=== PATIENT | male | born 1950 | race Caucasian/White ===

== ENCOUNTER 2018-04-18 11:51 | Inpatient (IN) | payer MEDICARE, OTHER ==
[2018-04-18 12:29] LABS: % BASOPHILS 0.4 % (0.0-2.0); % EOSINOPHILS 0.4 % (0.0-5.0); % LYMPHOCYTES 20.3 % (20.0-50.0); % MONOCYTES 4.9 % (2.0-10.0); HEMATOCRIT 40.5 % (41.0-60); HEMOGLOBIN 13.9 gm/dL (12-16); MEAN CELL VOLUME 90.2 fl (80-99); MEAN CORPUSCULAR HEMOGLOBIN 30.9 pg (27.0-31.0); MEAN CORPUSCULAR HGB CONC 34.2 pg (28.0-36.0); MEAN PLATELET VOLUME 8.9 fl; MONOCYTE ABSOLUTE 0.2 Th/cmm (0.3-1.0); NEUTROPHILE ABSOLUTE 3.5 Th/cmm (1.8-8.0); PLATELET COUNT 171 Th/cmm (150-400); RED BLOOD COUNT 4.49 Mil/cmm (3.80-5.80); RED CELL DISTRIBUTION WIDTH 12.4 % (11.5-20.0); WHITE BLOOD COUNT 4.7 Th/cmm (4.8-10.8)
[2018-04-18 12:46] LABS: ALB/GLOB RATIO 1.8 (1.0-1.8); ALBUMIN 4.2 gm/dL (4.2-5.5); ALKALINE PHOSPHATASE 65 U/L (34-104); ANION GAP 14.2 (7.0-16.0); BILIRUBIN,TOTAL 0.8 mg/dL (0.3-1.0); BUN - UREA NITROGEN 18 mg/dL (7-25); CALCIUM SERUM 9.3 mg/dL (8.6-10.3); CARBON DIOXIDE 22.9 mEq/L (21.0-31.0); CHLORIDE 103 mEq/L (98-107); CREATININE - SERUM 0.7 mg/dL (0.7-1.3); GFR AFRICAN-AMERICAN > 60.0 ml/min (>90); GFR NON AFRICAN-AMERICAN > 60.0 ml/min; GLUCOSE 362 mg/dL (70-105); PHOSPHOROUS 3.1 mg/dL (2.5-5.0); POTASSIUM SERUM 4.1 mEq/L (3.5-5.1); SGOT 15 U/L (13-39); SGPT/ALT 21 U/L (7-52); SODIUM SERUM 136 mEq/L (136-145); TOTAL PROTEIN,SERUM 6.5 gm/dL (6.0-8.3)
[2018-04-18 13:14] LABS: ACETAMINOPHEN < 10.0 ug/mL (10.0-30.0); SALICYLATES (ASPIRIN) < 25.0 mg/L (30.0-100.0)
[2018-04-18 13:39] LABS: URINE SOURCE CLEAN C
[2018-04-18 14:16] LABS: AMPHETAMINE URINE NEGATIVE (NEGATIVE); BARBITURATES URINE NEGATIVE (NEGATIVE); BENZODIAZEPINES QUAL URINE NEGATIVE (NEGATIVE); CANNABINOID THC NEGATIVE (NEGATIVE); COCAINE METABOLITE QUAL URINE NEGATIVE (NEGATIVE); METHADONE URINE NEGATIVE (NEGATIVE); METHAMPHETAMINES QUAL URINE NEGATIVE (NEGATIVE); OPIATES (MORPHINE) QUAL. URINE NEGATIVE (NEGATIVE); PHENCYCLIDINE (PCP) URINE NEGATIVE (NEGATIVE); TRICYCLICS (TCA) QUAL. URINE NEGATIVE (NEGATIVE)
[2018-04-18 14:21] LABS: URINE COLOR YELLOW
[2018-04-18 14:22] LABS: URINE CLARITY HAZY (CLEAR); URINE MICROSCOPIC INDICATED? YES
[2018-04-18 14:23] LABS: URINE BILIRUBIN NEGATIVE (NEGATIVE); URINE BLOOD NEGATIVE (NEGATIVE); URINE GLUCOSE (UA) >=1000 mg/dL (NEGATIVE); URINE KETONE TRACE mg/dL (NEGATIVE); URINE NITRATE POSITIVE (NEGATIVE); URINE PH 6.5 (4.6 - 8.0); URINE PROTEIN NEGATIVE (NEGATIVE); URINE UROBILINOGEN 0.2 E.U./dL (0.2 - 1.0)
[2018-04-18 14:24] LABS: URINE BACTERIA 2+ /hpf (NONE SEEN); URINE EPITHELIAL CELLS RARE /lpf (FEW); URINE LEUKOCYTE ESTERASE NEGATIVE (NEGATIVE); URINE RBC 0-2 /hpf (0-5); URINE WBC 0-2 /hpf (0-5)
[2018-04-18 14:25] LABS: URINE SPERM MODERATE /hpf (NONE SEEN)
[2018-04-18] MEDS ORDERED: Lactated Ringer 1,000 ML IV ONE ×2 (14:31→16:00)
--- NOTE | 2018-04-18 14:39 | ED Physician Chart ---
ED Chief Complaint/HPI - Patient Information Date Seen:: 04/18/18 Time Seen:: 12:00 Chief Complaint:: failure to thrive History of Present Illness:: PATIENT PRESENTS TO THE ER WITH HX OF WEAKNESS, DIZZINESS, POOR ORAL INTAKE, AND FAILURE TO THRIVE FOR SEVERAL DAYS; NO TRAUMA, NO OTHER REMARKABLE S/S; CURRENTLY DENIES ANY SYMPTOMS; PATIENT IS TO BE PLACED IN SNF PER DR ROSS Allergies:: Allergies Allergy/AdvReac Type Severity Reaction Status Date / Time No Known Allergies Allergy Verified 04/18/18 12:00 Vitals:: Vital Signs - 8 hr 04/18/18 12:00 Temp 98.9 F HR 86 RR 17 BP 147/63 O2 Sat % 97 Historian:: Other Review:: Nurse's Note Reviewed ED Review of Systems - Review of Systems General/Constitutional: No fever, No chills, Weight loss, Weakness, Loss of appetite Skin: No skin lesions, No rash, No bruising Head: No headache, No light-headedness Eyes: No loss of vision, No pain, No diplopia ENT: No earache, No nasal drainage, No sore throat, No tinnitus Neck: No neck pain, No swelling, No thyromegaly, No stiffness, No mass noted Cardio Vascular: No chest pain, No palpitations, No PND, No orthopnea, No edema Pulmonary: No SOB, No cough, No sputum, No wheezing GI: No nausea, No vomiting, No diarrhea, No pain, No melena, No hematochezia, No constipation, No hematemesis G/U: No dysuria, No frequency, No hematuria Musculoskeletal: No bone or joint pain, No back pain, No muscle pain Endocrine: No polyuria, No polydipsia Psychiatric: No prior psych history, No depression, No anxiety, No suicidal ideation Hematopoietic: No bruising, No lymphadenopathy Allergic/Immuno: No urticaria, No angioedema Neurological: No syncope, No focal symptoms, No weakness, No paresthesia, No headache, No seizure, No dizziness, No confusion, No vertigo ED Past Medical History - Past Medical History Obtainable: Yes Past Medical History: HTN, DM Family Medical History - Family Member Mother History Unknown: Yes ED Physical Exam - Physical Examination General/Constitutional: Awake, Well-developed, well-nourished, Alert, No distress, Non-toxic appearing, Ambulatory Other Gen/Cons comments:: filthy throughout. thick layer of dirt present throughout. no shower or bath for weeks apparent. Head: Atraumatic Eyes: Lids, conjuctiva normal, PERRL, EOMI Skin: Nl inspection, No rash, No skin lesions, No ecchymosis, Well hydrated, No lymphadenopathy ENMT: External ears, nose nl Neck: Nontender, Full ROM w/o pain, No nuchal rigidity, No stridor Respiratory: Nl effort/Exclusion, Clear to Auscultation, No Wheeze/Rhonchi/Rales Cardio Vascular: RRR, No murmur, gallop, rubs, NL S1 S2 GI: No tenderness/rebounding/guarding, No organomegaly, No hernia, Normal BS's, Nondistended, No mass/bruits, No McBurney tenderness : No CVA tenderness Extremities: No tenderness or effusion, Full ROM, normal strength in all extremities, No edema, Normal digits & nails Neuro/Psych: Alert/oriented, Normal sensory exam, Normal motor strength, No focal deficits Misc: Normal back, No paraspinal tenderness ED Labs/Radiology/EKG Results - Lab Results Results: Laboratory Tests 04/18/18 04/18/18 04/18/18 12:15 12:15 12:15 WBC 4.7 L RBC 4.49 Hgb 13.9 Hct 40.5 L MCV 90.2 MCH 30.9 MCHC Differential 34.2 RDW 12.4 Plt Count 171 MPV 8.9 Neutrophils % 74.0 Lymphocytes % 20.3 Monocytes % 4.9 Eosinophils % 0.4 Basophils % 0.4 Sodium 136 Potassium 4.1 Chloride 103 Carbon Dioxide 22.9 Anion Gap 14.2 BUN 18 Creatinine 0.7 Est GFR ( Amer) > 60.0 Est GFR (Non-Af Amer) > 60.0 BUN/Creatinine Ratio 25.7 Glucose 362 H POC Glucose Calcium 9.3 Phosphorus 3.1 Magnesium 2.0 Total Bilirubin 0.8 AST 15 ALT 21 Alkaline Phosphatase 65 Troponin I Total Protein 6.5 Albumin 4.2 Globulin 2.3 Albumin/Globulin Ratio 1.8 TSH 0.85 Urine Source Urine Color Urine Clarity Urine pH Ur Specific [place] Urine Protein Urine Glucose (UA) Urine Ketones Urine Blood Urine Nitrate Urine Bilirubin Urine Urobilinogen Ur Leukocyte Esterase Urine RBC Urine WBC Ur Epithelial Cells Urine Bacteria Urine Sperm Salicylates < 25.0 L Urine Opiates Screen Urine Methadone Screen Acetaminophen < 10.0 L Ur Barbiturates Screen Ur Tricyclics Screen Ur Phencyclidine Scrn Amphetamines Screen U Methamphetamines Scrn U Benzodiazepines Scrn U Cocaine Metab Screen U Cannabinoids Screen Ethyl Alcohol < 10 04/18/18 04/18/18 04/18/18 12:15 12:31 13:30 WBC RBC Hgb Hct MCV MCH MCHC Differential RDW Plt Count MPV Neutrophils % Lymphocytes % Monocytes % Eosinophils % Basophils % Sodium Potassium Chloride Carbon Dioxide Anion Gap BUN Creatinine Est GFR ( Amer) Est GFR (Non-Af Amer) BUN/Creatinine Ratio Glucose POC Glucose 357 H Calcium Phosphorus Magnesium Total Bilirubin AST ALT Alkaline Phosphatase Troponin I < 0.01 L Total Protein Albumin Globulin Albumin/Globulin Ratio TSH Urine Source CLEAN C Urine Color YELLOW Urine Clarity HAZY Urine pH 6.5 Ur Specific [place] 1.015 Urine Protein NEGATIVE Urine Glucose (UA) >=1000 H Urine Ketones TRACE Urine Blood NEGATIVE Urine Nitrate POSITIVE H Urine Bilirubin NEGATIVE Urine Urobilinogen 0.2 Ur Leukocyte Esterase NEGATIVE Urine RBC 0-2 H Urine WBC 0-2 Ur Epithelial Cells RARE Urine Bacteria 2+ H Urine Sperm MODERATE Salicylates Urine Opiates Screen Urine Methadone Screen Acetaminophen Ur Barbiturates Screen Ur Tricyclics Screen Ur Phencyclidine Scrn Amphetamines Screen U Methamphetamines Scrn U Benzodiazepines Scrn U Cocaine Metab Screen U Cannabinoids Screen Ethyl Alcohol 04/18/18 13:30 WBC RBC Hgb Hct MCV MCH MCHC Differential RDW Plt Count MPV Neutrophils % Lymphocytes % Monocytes % Eosinophils % Basophils % Sodium Potassium Chloride Carbon Dioxide Anion Gap BUN Creatinine Est GFR ( Amer) Est GFR (Non-Af Amer) BUN/Creatinine Ratio Glucose POC Glucose Calcium Phosphorus Magnesium Total Bilirubin AST ALT Alkaline Phosphatase Troponin I Total Protein Albumin Globulin Albumin/Globulin Ratio TSH Urine Source Urine Color Urine Clarity Urine pH Ur Specific [place] Urine Protein Urine Glucose (UA) Urine Ketones Urine Blood Urine Nitrate Urine Bilirubin Urine Urobilinogen Ur Leukocyte Esterase Urine RBC Urine WBC Ur Epithelial Cells Urine Bacteria Urine Sperm Salicylates Urine Opiates Screen NEGATIVE Urine Methadone Screen NEGATIVE Acetaminophen Ur Barbiturates Screen NEGATIVE Ur Tricyclics Screen NEGATIVE Ur Phencyclidine Scrn NEGATIVE Amphetamines Screen NEGATIVE U Methamphetamines Scrn NEGATIVE U Benzodiazepines Scrn NEGATIVE U Cocaine Metab Screen NEGATIVE U Cannabinoids Screen NEGATIVE Ethyl Alcohol ED Assessment - Assessment General Assessment: EKG from 12:23:07 p.m. reveals normal sinus rhythm with flipped t wave in V1. Nonspecific ST T wave changes. Dr. Ross called. He will admit this patient. ED Septic Shock - . Is Septic Shock (SBP<90, OR Lactate>4 mmol\L) present?: No - <6hrs of presentation: Vital Signs: Vital Signs - 8 hr 04/18/18 12:00 Temp 98.9 F HR 86 RR 17 BP 147/63 O2 Sat % 97 ED Reassessment (Disposition) - Reassessment Reassessment Condition:: Unchanged - Diagnosis Diagnosis:: Failure to thrive Not able to take care of self. Urinary tract infection. Slightly low white blood count. - Patient Disposition Discharge/Transfer:: Acute Care w/in this hosp Admitted to:: Med/Surg Condition at Disposition:: Stable, Unchanged
[2018-04-18] MEDS ORDERED: Piperacillin Sodium/Tazobact 3.375 gm Vial IV ONE (15:12)
[2018-04-18] MEDS ORDERED: Pneumococcal Vaccine 0.5 mL Vial IM ONE (17:24)
[2018-04-18] MEDS ORDERED: Influenza Vaccine (65 yr & older) 0.5 ml Syr IM ONE (17:24)
[2018-04-18] MEDS: Levofloxacin 500mg/100mL 500 MG/100 ML BAG IV SCH (17:38)
[2018-04-18] MEDS: INSULIN ASPART SLIDING SCALE 100 UNITS/ML UNIT SUBQ SCH ×3 (18:04→21:18)
[2018-04-18 18:36] VITALS: BP 150/86
[2018-04-19] MEDS: Sodium Chloride 0.45% 1,000 ML IV SCH ×4 (02:48→21:28)
[2018-04-19 06:43] LABS: % BASOPHILS 0.2 % (0.0-2.0); % EOSINOPHILS 0.6 % (0.0-5.0); % LYMPHOCYTES 33.3 % (20.0-50.0); % MONOCYTES 6.2 % (2.0-10.0); % NEUTROPHILS 59.7 % (40.0-80.0); HEMATOCRIT 40.8 % (41.0-60); HEMOGLOBIN 13.6 gm/dL (12-16); LYMPHOCYTE ABSOLUTE 1.5 Th/cmm (1.5-3.0); MEAN CELL VOLUME 90.5 fl (80-99); MEAN CORPUSCULAR HEMOGLOBIN 30.2 pg (27.0-31.0); MEAN CORPUSCULAR HGB CONC 33.4 pg (28.0-36.0); MEAN PLATELET VOLUME 9.1 fl; MONOCYTE ABSOLUTE 0.3 Th/cmm (0.3-1.0); NEUTROPHILE ABSOLUTE 2.7 Th/cmm (1.8-8.0); PLATELET COUNT 144 Th/cmm (150-400); RED BLOOD COUNT 4.51 Mil/cmm (3.80-5.80); RED CELL DISTRIBUTION WIDTH 12.1 % (11.5-20.0); WHITE BLOOD COUNT 4.5 Th/cmm (4.8-10.8)
[2018-04-19 06:53] LABS: ANION GAP 11.5 (7.0-16.0); BUN - UREA NITROGEN 14 mg/dL (7-25); CALCIUM SERUM 8.9 mg/dL (8.6-10.3); CARBON DIOXIDE 26.3 mEq/L (21.0-31.0); CHLORIDE 105 mEq/L (98-107); CHOLESTEROL 171 mg/dL (<200); CREATININE - SERUM 0.7 mg/dL (0.7-1.3); GFR AFRICAN-AMERICAN > 60.0 ml/min (>90); GFR NON AFRICAN-AMERICAN > 60.0 ml/min; HDL -HIGH DENSITY LIPOPROTEIN 38 mg/dL (23-92); POTASSIUM SERUM 3.8 mEq/L (3.5-5.1); SODIUM SERUM 139 mEq/L (136-145); TRIGLYCERIDES 164 mg/dL (<150)
[2018-04-19 06:59] LABS: GLUCOSE 195 mg/dL (70-105)
[2018-04-19] MEDS: INSULIN ASPART SLIDING SCALE 100 UNITS/ML UNIT SUBQ SCH ×5 (08:00→21:27)
[2018-04-19] MEDS: Levofloxacin 500mg/100mL 500 MG/100 ML BAG IV SCH (17:13)
--- NOTE | 2018-04-19 17:50 | History & Physical ---
ADMIT DATE: 04/18/2018 REASON FOR CONSULTATION: Rule out urine infection. HISTORY OF PRESENT ILLNESS: This is a 67-year-old male, Estonian speaking, who was admitted from a [facility] facility through the Emergency Room of [facility] for rule out urinary tract infection. From the Emergency Room, the patient had workup and found that the patient had active urinary tract infection, hence the patient was admitted to med/surg unit. REVIEW OF SYSTEMS: GENERAL: This is a 67-year-old male that appears as stated. No fever. No weakness. HEENT: No headache. No dizziness. EYES: No eye pain, no blurring of vision. NECK: No neck pain or nuchal rigidity. CHEST: No chest pain or palpitation. PULMONARY: No coughing, no shortness of breath. GASTROINTESTINAL: No abdominal pain, no constipation, no diarrhea. MUSCULOSKELETAL: No joint pain. No muscle pain. SOCIAL HISTORY: The patient lives in a [facility] prior to hospitalization. PAST SURGICAL HISTORY: The patient denies any history. PAST MEDICAL HISTORY: The patient denies. FAMILY HISTORY: The patient denies substance usage. The patient denies nicotine, alcohol, or illicit drug use. PHYSICAL EXAMINATION: VITAL SIGNS: Temperature 98.3, heart rate 74, blood pressure 144/78, respirations of 19, 98% on room air. GENERAL: This is a 67-year-old male that appears as stated, in no acute distress. HEENT: Head is atraumatic, normocephalic. Eyes: Bilateral conjunctivae are clear. Bilateral pupils are equally round and reactive. NECK: Supple. No JVD. CARDIOVASCULAR: S1 and S2 without murmur. PULMONARY: Clear to auscultation. GASTROINTESTINAL: Soft and nontender without guarding. Positive bowel sounds. MUSCULOSKELETAL: No clubbing. No cyanosis noted. ASSESSMENT: 1. Urinary tract infection. 2. Diabetes. 3. Rule out hypertension. PLAN: We will continue current antibiotics and we will wait for urine culture result. We are also going to check patient's hemoglobin A1c and do medication reconciliation accordingly. Treatment plans were discussed with the patient's nurse. We will admit the patient to med/surg unit. Treatment plans were discussed with Dr. Ross. JOB# [id number]
[2018-04-20] MEDS: Sodium Chloride 0.45% 1,000 ML IV SCH ×2 (05:53→15:01)
[2018-04-20] MEDS: INSULIN ASPART SLIDING SCALE 100 UNITS/ML UNIT SUBQ SCH ×2 (06:52→11:38)
--- NOTE | 2018-04-20 09:49 | Internal Medicine Prog Note ---
Internal Medicine Subjective - Subjective Patient seen and examined:: chart reviewed Patient is:: awake, verbal, other (in no distress, admitted for UTI on antibiotics) Per staff patient has:: no adverse event Internal Medicine Objective - Results Result Diagrams: 04/19/18 05:40 04/19/18 04:50 Recent Labs: Laboratory Last Values WBC 4.5 Th/cmm (4.8-10.8) L 04/19/18 05:40 RBC 4.51 Mil/cmm (3.80-5.80) 04/19/18 05:40 Hgb 13.6 gm/dL (12-16) 04/19/18 05:40 Hct 40.8 % (41.0-60) L 04/19/18 05:40 MCV 90.5 fl (80-99) 04/19/18 05:40 MCH 30.2 pg (27.0-31.0) 04/19/18 05:40 MCHC Differential 33.4 pg (28.0-36.0) 04/19/18 05:40 RDW 12.1 % (11.5-20.0) 04/19/18 05:40 Plt Count 144 Th/cmm (150-400) L 04/19/18 05:40 MPV 9.1 fl 04/19/18 05:40 Neutrophils % 59.7 % (40.0-80.0) 04/19/18 05:40 Lymphocytes % 33.3 % (20.0-50.0) 04/19/18 05:40 Monocytes % 6.2 % (2.0-10.0) 04/19/18 05:40 Eosinophils % 0.6 % (0.0-5.0) 04/19/18 05:40 Basophils % 0.2 % (0.0-2.0) 04/19/18 05:40 Sodium 139 mEq/L (136-145) 04/19/18 04:50 Potassium 3.8 mEq/L (3.5-5.1) 04/19/18 04:50 Chloride 105 mEq/L (98-107) 04/19/18 04:50 Carbon Dioxide 26.3 mEq/L (21.0-31.0) 04/19/18 04:50 Anion Gap 11.5 (7.0-16.0) 04/19/18 04:50 BUN 14 mg/dL (7-25) 04/19/18 04:50 Creatinine 0.7 mg/dL (0.7-1.3) 04/19/18 04:50 Est GFR ( Amer) > 60.0 ml/min (>90) 04/19/18 04:50 Est GFR (Non-Af Amer) > 60.0 ml/min 04/19/18 04:50 BUN/Creatinine Ratio 20.0 04/19/18 04:50 Glucose 195 mg/dL (70-105) H D 04/19/18 04:50 POC Glucose 166 MG/DL (70 - 105) H 04/20/18 06:49 Calcium 8.9 mg/dL (8.6-10.3) 04/19/18 04:50 Phosphorus 3.1 mg/dL (2.5-5.0) 04/18/18 12:15 Magnesium 2.0 mg/dL (1.9-2.7) 04/18/18 12:15 Total Bilirubin 0.8 mg/dL (0.3-1.0) 04/18/18 12:15 AST 15 U/L (13-39) 04/18/18 12:15 ALT 21 U/L (7-52) 04/18/18 12:15 Alkaline Phosphatase 65 U/L (34-104) 04/18/18 12:15 Troponin I < 0.01 ng/mL (0.01-0.05) L 04/18/18 12:15 Total Protein 6.5 gm/dL (6.0-8.3) 04/18/18 12:15 Albumin 4.2 gm/dL (4.2-5.5) 04/18/18 12:15 Globulin 2.3 gm/dL 04/18/18 12:15 Albumin/Globulin Ratio 1.8 (1.0-1.8) 04/18/18 12:15 Triglycerides 164 mg/dL (<150) H 04/19/18 04:50 Cholesterol 171 mg/dL (<200) 04/19/18 04:50 LDL Cholesterol Direct 118 mg/dL (75-193) 04/19/18 04:50 HDL Cholesterol 38 mg/dL (23-92) 04/19/18 04:50 TSH 2.10 uIU/ml (0.34-5.60) 04/19/18 06:00 Urine Source CLEAN C 04/18/18 13:30 Urine Color YELLOW 04/18/18 13:30 Urine Clarity HAZY (CLEAR) 04/18/18 13:30 Urine pH 6.5 (4.6 - 8.0) 04/18/18 13:30 Ur Specific [place] 1.015 (1.005-1.030) 04/18/18 13:30 Urine Protein NEGATIVE mg/dL (NEGATIVE) 04/18/18 13:30 Urine Glucose (UA) >=1000 mg/dL (NEGATIVE) H 04/18/18 13:30 Urine Ketones TRACE mg/dL (NEGATIVE) 04/18/18 13:30 Urine Blood NEGATIVE (NEGATIVE) 04/18/18 13:30 Urine Nitrate POSITIVE (NEGATIVE) H 04/18/18 13:30 Urine Bilirubin NEGATIVE (NEGATIVE) 04/18/18 13:30 Urine Urobilinogen 0.2 E.U./dL (0.2 - 1.0) 04/18/18 13:30 Ur Leukocyte Esterase NEGATIVE (NEGATIVE) 04/18/18 13:30 Urine RBC 0-2 /hpf (0-5) H 04/18/18 13:30 Urine WBC 0-2 /hpf (0-5) 04/18/18 13:30 Ur Epithelial Cells RARE /lpf (FEW) 04/18/18 13:30 Urine Bacteria 2+ /hpf (NONE SEEN) H 04/18/18 13:30 Urine Sperm MODERATE /hpf (NONE SEEN) 04/18/18 13:30 Salicylates < 25.0 mg/L (30.0-100.0) L 04/18/18 12:15 Urine Opiates Screen NEGATIVE (NEGATIVE) 04/18/18 13:30 Urine Methadone Screen NEGATIVE (NEGATIVE) 04/18/18 13:30 Acetaminophen < 10.0 ug/mL (10.0-30.0) L 04/18/18 12:15 Ur Barbiturates Screen NEGATIVE (NEGATIVE) 04/18/18 13:30 Ur Tricyclics Screen NEGATIVE (NEGATIVE) 04/18/18 13:30 Ur Phencyclidine Scrn NEGATIVE (NEGATIVE) 04/18/18 13:30 Amphetamines Screen NEGATIVE (NEGATIVE) 04/18/18 13:30 U Methamphetamines Scrn NEGATIVE (NEGATIVE) 04/18/18 13:30 U Benzodiazepines Scrn NEGATIVE (NEGATIVE) 04/18/18 13:30 U Cocaine Metab Screen NEGATIVE (NEGATIVE) 04/18/18 13:30 U Cannabinoids Screen NEGATIVE (NEGATIVE) 04/18/18 13:30 Ethyl Alcohol < 10 mg/dL (0-10) 04/18/18 12:15 - Physical Exam Vitals and I&O: Vital Signs Temp 98.7 F 04/20/18 08:00 Pulse 79 04/20/18 08:00 Resp 18 04/20/18 08:00 BP 127/67 04/20/18 08:00 Pulse Ox 98 04/20/18 08:00 Intake & Output 04/19/18 04/20/18 04/20/18 18:59 06:59 18:59 Intake Total 2250 1533.333 Balance 2250 1533.333 Weight (lbs) 82.1 kg 83.007 kg 81.647 kg Intake: Intake, IV Amount 1650 1533.333 Sodium Chloride 0.45% 1, 1650 1533.333 000 ml @ 125 mls/hr IV . Q8H [facility] Rx#:[id number] Oral 600 Other: # Voids 5 4 # Bowel Movements 0 1 Weight Source Bedscale Bedscale Patient stated Active Medications: Current Medications Levofloxacin (Levaquin Pb) 500 mg in 100 mls @ 100 mls/hr IV Q24HR [facility] Stop: 06/17/18 17:59 Last Admin: 04/19/18 17:13 Dose: 100 mls/hr Sodium Chloride (Nacl 0.45%) 1,000 mls @ 125 mls/hr IV .Q8H [facility] Stop: 06/17/18 16:32 Last Admin: 04/20/18 05:53 Dose: 125 mls/hr Insulin Aspart (Novolog Insulin Sliding Scale) 0 units SUBQ ACHS TEVIN; Protocol Stop: 06/17/18 16:32 Last Admin: 04/20/18 06:52 Dose: Not Given General: alert HEENT: NC/AT Neck: Supple Lungs: CTAB Cardiovascular: RRR, Normal S1, Normal S2 Abdomen: soft, non-tender Extremities: clear Neurological: no change Internal Medicine Assmt/Plan - Assessment Assessment: uti dm - Plan Plan: antibiotic management diet labs as per order sheet Nutritional Asmnt/Malnutr-PDOC - Dietary Evaluation Malnutrition Findings (Please click <Entered> for more info): Nutritional Asmnt/Malnutrition Start: 04/19/18 11: 32 Text: Status: Complete Freq: Protocol: Document 04/19/18 11:32 JULIANNA (Rec: 04/19/18 11:48 JULIANNA BARTLETT- [id number]) Nutritional Asmnt/Malnutrition Patient General Information Nutritional Screening Consult Diagnosis UTI, dehydration, failure to thrive Pertinent Medical Hx/Surgical Hx None noted (no H&P) Subjective Information Consult for DM, BS on admission 268. Patient was admitted from [facility]. Per nursing notes, patient refusing some insulin. Per nursing notes, patient had poor oral intake for several days prior to admission. Current Diet Order/ Nutrition Support 60 gm CCHO Patient / S.O Not Indicated Pertinent Medications Novolog Pertinent Labs Glucose 195-362 Nutritional Hx/Data Height 1.7 m Height (Calculated Centimeters) 170.2 Current Weight (lbs) 81.647 kg Weight (Calculated Kilograms) 81.6 Weight (Calculated Grams) 57116.6 [place] Body Weight 148 % [place] Body Weight 121 Body Mass Index (BMI) 28.1 Recent Weight Change No Weight Status Overweight GI Symptoms GI Symptoms None Last BM 2 x 1 Difficult in: None Food Allergies No Cultural/Ethnic/Mormon Belief none indicated Usual diet at home unknown Skin Integrity/Comment: Intact, Red 19 Current %PO Good (75-100%) Estimated Nutritional Goals BEE in Kcals: Using Current wt Calories/Kcals/Kg 81.8kg CBW 22-27 kcal/kg Kcals Calculated ~5488-4440 kcal/day Protein: Using Current wt Protein g/k.8-1 gm/kg Protein Calculated ~65-80 gm/day Fluid: ml ~2630-7232 ml/day (1 ml/kcal) Nutritional Problem 1. Problem Problem Altered nutrition related lab values related to Etiology uncontrolled hyperglycemia aeb Signs/Symptoms: Glucose 195-362 Intervention/Recommendation Comments 1. Continue 60 gm CCHO diet as tolerated by patient. Continue to encourage patient to take insulin as prescribed for optimal glycemic control. Expected Outcomes/Goals Expected Outcomes/Goals Oral intake >75% of meals, weight stable or trend toward IBW, nutrition related labs WNL F/U MR 04/22-
[2018-04-20] MEDS ORDERED: Sodium Chloride 0.45% 1,000 ML IV SCH (15:30)
[2018-04-20] MEDS: Levofloxacin 500mg/100mL 500 MG/100 ML BAG IV SCH (17:23)
--- NOTE | 2018-04-21 11:06 | Internal Medicine Prog Note ---
Internal Medicine Subjective - Subjective Service Date: 04/21/18 Patient seen and examined:: chart reviewed Patient is:: awake, verbal, other (in no distress, admitted for UTI on antibiotics) Patient Complaints of:: pain with urination (currently being treated for UTI, on Antibiotics.) Per staff patient has:: no adverse event Internal Medicine Objective - Results Result Diagrams: 04/19/18 05:40 04/19/18 04:50 Recent Labs: Laboratory Last Values WBC 4.5 Th/cmm (4.8-10.8) L 04/19/18 05:40 RBC 4.51 Mil/cmm (3.80-5.80) 04/19/18 05:40 Hgb 13.6 gm/dL (12-16) 04/19/18 05:40 Hct 40.8 % (41.0-60) L 04/19/18 05:40 MCV 90.5 fl (80-99) 04/19/18 05:40 MCH 30.2 pg (27.0-31.0) 04/19/18 05:40 MCHC Differential 33.4 pg (28.0-36.0) 04/19/18 05:40 RDW 12.1 % (11.5-20.0) 04/19/18 05:40 Plt Count 144 Th/cmm (150-400) L 04/19/18 05:40 MPV 9.1 fl 04/19/18 05:40 Neutrophils % 59.7 % (40.0-80.0) 04/19/18 05:40 Lymphocytes % 33.3 % (20.0-50.0) 04/19/18 05:40 Monocytes % 6.2 % (2.0-10.0) 04/19/18 05:40 Eosinophils % 0.6 % (0.0-5.0) 04/19/18 05:40 Basophils % 0.2 % (0.0-2.0) 04/19/18 05:40 Sodium 139 mEq/L (136-145) 04/19/18 04:50 Potassium 3.8 mEq/L (3.5-5.1) 04/19/18 04:50 Chloride 105 mEq/L (98-107) 04/19/18 04:50 Carbon Dioxide 26.3 mEq/L (21.0-31.0) 04/19/18 04:50 Anion Gap 11.5 (7.0-16.0) 04/19/18 04:50 BUN 14 mg/dL (7-25) 04/19/18 04:50 Creatinine 0.7 mg/dL (0.7-1.3) 04/19/18 04:50 Est GFR ( Amer) > 60.0 ml/min (>90) 04/19/18 04:50 Est GFR (Non-Af Amer) > 60.0 ml/min 04/19/18 04:50 BUN/Creatinine Ratio 20.0 04/19/18 04:50 Glucose 195 mg/dL (70-105) H D 04/19/18 04:50 POC Glucose 250 MG/DL (70 - 105) H 04/20/18 21:54 Calcium 8.9 mg/dL (8.6-10.3) 04/19/18 04:50 Phosphorus 3.1 mg/dL (2.5-5.0) 04/18/18 12:15 Magnesium 2.0 mg/dL (1.9-2.7) 04/18/18 12:15 Total Bilirubin 0.8 mg/dL (0.3-1.0) 04/18/18 12:15 AST 15 U/L (13-39) 04/18/18 12:15 ALT 21 U/L (7-52) 04/18/18 12:15 Alkaline Phosphatase 65 U/L (34-104) 04/18/18 12:15 Troponin I < 0.01 ng/mL (0.01-0.05) L 04/18/18 12:15 Total Protein 6.5 gm/dL (6.0-8.3) 04/18/18 12:15 Albumin 4.2 gm/dL (4.2-5.5) 04/18/18 12:15 Globulin 2.3 gm/dL 04/18/18 12:15 Albumin/Globulin Ratio 1.8 (1.0-1.8) 04/18/18 12:15 Triglycerides 164 mg/dL (<150) H 04/19/18 04:50 Cholesterol 171 mg/dL (<200) 04/19/18 04:50 LDL Cholesterol Direct 118 mg/dL (75-193) 04/19/18 04:50 HDL Cholesterol 38 mg/dL (23-92) 04/19/18 04:50 TSH 2.10 uIU/ml (0.34-5.60) 04/19/18 06:00 Urine Source CLEAN C 04/18/18 13:30 Urine Color YELLOW 04/18/18 13:30 Urine Clarity HAZY (CLEAR) 04/18/18 13:30 Urine pH 6.5 (4.6 - 8.0) 04/18/18 13:30 Ur Specific Sigurd 1.015 (1.005-1.030) 04/18/18 13:30 Urine Protein NEGATIVE mg/dL (NEGATIVE) 04/18/18 13:30 Urine Glucose (UA) >=1000 mg/dL (NEGATIVE) H 04/18/18 13:30 Urine Ketones TRACE mg/dL (NEGATIVE) 04/18/18 13:30 Urine Blood NEGATIVE (NEGATIVE) 04/18/18 13:30 Urine Nitrate POSITIVE (NEGATIVE) H 04/18/18 13:30 Urine Bilirubin NEGATIVE (NEGATIVE) 04/18/18 13:30 Urine Urobilinogen 0.2 E.U./dL (0.2 - 1.0) 04/18/18 13:30 Ur Leukocyte Esterase NEGATIVE (NEGATIVE) 04/18/18 13:30 Urine RBC 0-2 /hpf (0-5) H 04/18/18 13:30 Urine WBC 0-2 /hpf (0-5) 04/18/18 13:30 Ur Epithelial Cells RARE /lpf (FEW) 04/18/18 13:30 Urine Bacteria 2+ /hpf (NONE SEEN) H 04/18/18 13:30 Urine Sperm MODERATE /hpf (NONE SEEN) 04/18/18 13:30 Salicylates < 25.0 mg/L (30.0-100.0) L 04/18/18 12:15 Urine Opiates Screen NEGATIVE (NEGATIVE) 04/18/18 13:30 Urine Methadone Screen NEGATIVE (NEGATIVE) 04/18/18 13:30 Acetaminophen < 10.0 ug/mL (10.0-30.0) L 04/18/18 12:15 Ur Barbiturates Screen NEGATIVE (NEGATIVE) 04/18/18 13:30 Ur Tricyclics Screen NEGATIVE (NEGATIVE) 04/18/18 13:30 Ur Phencyclidine Scrn NEGATIVE (NEGATIVE) 04/18/18 13:30 Amphetamines Screen NEGATIVE (NEGATIVE) 04/18/18 13:30 U Methamphetamines Scrn NEGATIVE (NEGATIVE) 04/18/18 13:30 U Benzodiazepines Scrn NEGATIVE (NEGATIVE) 04/18/18 13:30 U Cocaine Metab Screen NEGATIVE (NEGATIVE) 04/18/18 13:30 U Cannabinoids Screen NEGATIVE (NEGATIVE) 04/18/18 13:30 Ethyl Alcohol < 10 mg/dL (0-10) 04/18/18 12:15 - Physical Exam Vitals and I&O: Vital Signs Temp 97.5 F 04/21/18 08:00 Pulse 74 04/21/18 08:00 Resp 18 04/21/18 08:00 BP 161/80 04/21/18 08:00 Pulse Ox 97 04/21/18 08:00 Intake & Output 04/20/18 04/21/18 04/21/18 18:59 06:59 18:59 Intake Total 2494.167 400 Balance 2494.167 400 Weight (lbs) 82.236 kg 82.1 kg Intake: Intake, IV Amount 1694.167 Levofloxacin 500mg/100mL 100 500 mg In 100 ml @ 100 mls/hr IV Q24HR [facility] Rx#: [id number] Sodium Chloride 0.45% 1, 1000 000 ml @ 125 mls/hr IV . Q8H [facility] Rx#:[id number] Sodium Chloride 0.45% 1, 152.5 000 ml @ 50 mls/hr IV . Q20H [facility] Rx#:[id number] Oral 800 400 Other: # Voids 4 1,000 # Bowel Movements 1 0 Weight Source Bedscale Bedscale Active Medications: Current Medications Acetaminophen (Tylenol) 650 mg PO Q6H PRN PRN Reason: Pain (Moderate) 4-7 Stop: 06/20/18 00:08 Levofloxacin (Levaquin Pb) 500 mg in 100 mls @ 100 mls/hr IV Q24HR [facility] Stop: 06/17/18 17:59 Last Infusion: 04/20/18 18:33 Dose: Infused Sodium Chloride (Nacl 0.45%) 1,000 mls @ 50 mls/hr IV .Q20H [facility] Stop: 06/19/18 15:29 Last Infusion: 04/20/18 18:33 Dose: 50 mls/hr Metformin HCl (Glucophage) 500 mg PO BID [facility] Stop: 06/19/18 16:59 Last Admin: 04/21/18 09:50 Dose: 500 mg General: alert, other (In no acute distress.) HEENT: NC/AT Neck: Supple Lungs: CTAB Cardiovascular: RRR, Normal S1, Normal S2 Abdomen: soft, non-tender Extremities: clear Neurological: no change Internal Medicine Assmt/Plan - Assessment Assessment: Urinary Tract Infection. Diabetes Mellitus. - Plan Plan: Antibiotic management Monitor diet labs as per order sheet Nutritional Asmnt/Malnutr-PDOC - Dietary Evaluation Malnutrition Findings (Please click <Entered> for more info): Nutritional Asmnt/Malnutrition Start: 04/19/18 11: 32 Text: Status: Complete Freq: Protocol: Document 04/19/18 11:32 JULIANNA (Rec: 04/19/18 11:48 [facility]LE[facility]- [email or web address]) Nutritional Asmnt/Malnutrition Patient General Information Nutritional Screening Consult Diagnosis UTI, dehydration, failure to thrive Pertinent Medical Hx/Surgical Hx None noted (no H&P) Subjective Information Consult for DM, BS on admission 268. Patient was admitted from [facility]. Per nursing notes, patient refusing some insulin. Per nursing notes, patient had poor oral intake for several days prior to admission. Current Diet Order/ Nutrition Support [facility] / S.O Not Indicated Pertinent Medications Novolog Pertinent Labs Glucose 195-362 Nutritional Hx/Data Height 1.7 m Height (Calculated Centimeters) 170.2 Current Weight (lbs) 81.647 kg Weight (Calculated Kilograms) 81.6 Weight (Calculated Grams) 45062.6 [place] Body Weight 148 % [place] Body Weight 121 Body Mass Index (BMI) 28.1 Recent Weight Change No Weight Status Overweight GI Symptoms GI Symptoms None Last BM 04/19 x 1 Difficult in: None Food Allergies No Cultural/Ethnic/Church Belief none indicated Usual diet at home unknown Skin Integrity/Comment: Red Banerjee 19 Current %PO Good (75-100%) Estimated Nutritional Goals BEE in Kcals: Using Current wt Calories/Kcals/Kg 81.8kg CBW 22-27 kcal/kg Kcals Calculated ~6688-7068 kcal/day Protein: Using Current wt Protein g/k.8-1 gm/kg Protein Calculated ~65-80 gm/day Fluid: ml ~8573-6590 ml/day (1 ml/kcal) Nutritional Problem 1. Problem Problem Altered nutrition related lab values related to Etiology uncontrolled hyperglycemia aeb Signs/Symptoms: Glucose 195-362 Intervention/Recommendation Comments 1. Continue 60 gm CCHO diet as tolerated by patient. Continue to encourage patient to take insulin as prescribed for optimal glycemic control. Expected Outcomes/Goals Expected Outcomes/Goals Oral intake >75% of meals, weight stable or trend toward IBW, nutrition related labs WNL F/U MR 04/22-
--- NOTE | 2018-04-26 12:36 | Discharge Summary ---
DATE OF DISCHARGE: 04/21/2018 The patient was admitted to [facility] on 04/18. The patient was discharged to [facility] on 04/21. A 67-year-old male patient came to the Emergency Room, found to have a urinary tract infection and history of diabetes, history of hypertension. The patient was given IV antibiotics. The patient improved. The patient is in stable condition. On 04/21, the patient was sent to [facility] where I will be following the patient. CONDITION AT TIME OF DISCHARGE: Stable. MEDICATIONS- AND ACTIVITY: See the reconciliation sheet. JOB# [id number]
== END 2018-04-21 19:10 | DRG 689 ==
LOC: ER 11:51 → MSI 14:50 → ER 15:50
PROVIDERS: ADMIT Internal Medicine; ATTEND Internal Medicine
DX: N39.0 Urinary tract infection, site not specified (principal); E11.00 Type 2 diabetes mellitus with hyperosmolarity without nonketotic hyperglycemic-hyperosmolar coma (NKHHC); E11.9 Type 2 diabetes mellitus without complications; R62.7 Adult failure to thrive; I10 Essential (primary) hypertension
CPT/HCPCS: 36415-UA; 80048-TC; 80053-TC; 80061-TC; 80307; 80320-TC; 80329-TC; 81001-TC; 82948-90; 83036-90; 83735-TC; 84100-TC; 84443-TC; 84484-TC; 85025-TC; 87086-90; 93005; J1815; J1956; J2543; Z7610